=== PATIENT | female | born 1995 | race American Indian/Alaskan Native ===

== ENCOUNTER 2016-07-31 22:28 | Outpatient (CLI) | payer MEDICAID ==
[2016-07-31] MEDS ORDERED: LACTATED RINGERS 500 ML IV ONE (23:01)
[2016-07-31] MEDS ORDERED: LACTATED RINGERS 1,000 ML ONE (23:03)
[2016-07-31 23:43] VITALS: BP 115/58
[2016-08-01] MEDS ORDERED: ZOFRAN IV ONE (00:09)
== END 2016-08-01 01:06 | disposition home or self-care (01) ==
LOC: TRG 22:28
PROVIDERS: ATTEND Obstetrics & Gynecology
DX: O47.02 False labor before 37 completed weeks of gestation, second trimester (principal); Z3A.23 23 weeks gestation of pregnancy
CPT/HCPCS: 96360; 96374; J2405; J7120

== ENCOUNTER 2016-11-04 16:58 | Outpatient (CLI) | payer MEDICAID ==
[2016-11-04] MEDS ORDERED: LACTATED RINGERS 500 ML IV ONE (17:13)
[2016-11-04 18:50] LABS: Hemoglobin 10.4 gm/dl (10.1-14.3); Mean Corpuscular HGB Conc 34 % (30-34); Mean Corpuscular Hemoglobin 27 pg (28-32); Mean Corpuscular Volume 79 fl (79-97); Platelet Count 210 K/mm3 (140-440); Red Blood Count 3.92 M/mm3 (3.65-5.03); Red Cell Distribution Width 14.7 % (13.2-15.2); White Blood Count 8.1 K/mm3 (4.5-11.0)
[2016-11-04] MEDS ORDERED: ZOFRAN IV ONE (18:54)
[2016-11-04] MEDS ORDERED: LACTATED RINGERS 1,000 ML IV SCH (19:00)
[2016-11-04 19:04] VITALS: BP 108/53
[2016-11-04 19:19] LABS: Bilirubin,Urine NEG (Negative); Blood,Urine NEG (Negative); Ketones,Urine NEG (Negative); Leukocyte Esterase,Urine TR (Negative); Mucus,Urine FEW /HPF; Nitrite,Urine NEG (Negative); Protein,Urine <15 mg/dL mg/dL (Negative); Urobilinogen,Urine < 2.0 mg/dL (<2.0)
== END 2016-11-04 20:24 | disposition home or self-care (01) ==
LOC: TRG 16:58
PROVIDERS: ATTEND Obstetrics & Gynecology
DX: O47.1 False labor at or after 37 completed weeks of gestation (principal); Z3A.37 37 weeks gestation of pregnancy
CPT/HCPCS: 36415; 81001; 85027; 96360; 96361; J2405; J7120; 59025

== ENCOUNTER 2017-09-24 08:40 | Emergency (ER) | payer MEDICAID ==
--- NOTE | 2017-09-24 09:56 | Emergency Department Report ---
ED Back Pain/Injury HPI - General Chief Complaint: Back Pain/Injury Stated Complaint: BACK PAIN Time Seen by Provider: 09/24/17 09:18 Source: patient Limitations: No Limitations - History of Present Illness Initial Comments: This is a 21-year-old female presents with low back pain for 1 year it has increased past 3 days. Patient reports back pain started last year after receiving an epidural in October. She has been seen in [facility] when no improvement of symptoms. Patient reports pain is mid line lower spine area. Reports pain is worse with deep breaths to lower back and lower pelvic area. Reports pain and 9 out of 10 on pain scale. Last menstrual period was 09/11/2017, G2P to a 0. Admits to frequency and urgency. Denies dysuria, nausea or vomiting, diarrhea, chest pain, shortness of breath, and fever. MD Complaint: back pain (midline lower back pain) -: days(s) (3 days) Similar Symptoms Previously: Yes (every since received epidural last year) Place: home Radiation: none Severity: moderate Severity scale (0 -10): 7 Quality: aching Consistency: constant Improves With: immobilization, supine Worsens With: movement, sitting upright, deep breaths/cough Context: unknown Associated Symptoms: denies other symptoms Treatments Prior to Arrival: NSAIDS - Related Data Previous Rx's Medication Instructions Recorded Last Taken Type Naproxen [Naprosyn TAB] 500 mg PO BID PRN #15 tablet 09/24/17 Unknown Rx Sulfamethoxazole/Trimethoprim 1 each PO BID 3 Days #6 tablet 09/24/17 Unknown Rx [Bactrim DS TAB] traMADol [Ultram 50 MG tab] 50 mg PO Q6HR PRN #15 tablet 09/24/17 Unknown Rx Allergies Allergy/AdvReac Type Severity Reaction Status Date / Time No Known Allergies Allergy Verified 07/31/16 23:01 ED Review of Systems ROS: Stated complaint: BACK PAIN Other details as noted in HPI Constitutional: denies: chills, fever Respiratory: denies: cough, shortness of breath, wheezing Cardiovascular: denies: chest pain, palpitations Gastrointestinal: denies: abdominal pain, nausea, vomiting, diarrhea Genitourinary: denies: urgency, dysuria, discharge Musculoskeletal: back pain (midline low back pain). denies: joint swelling, arthralgia ED Back Pain Physical Exam - Exam General: Vital signs noted. No distress. Alert and acting appropriately. Back/Abdomen: Yes Sacroiliac Tenderness (midline, no swelling, no erythema), No Abdominal Tenderness, No Perithoracic Tenderness, No Perilumbar Tenderness, No Flank Tenderness, No Straight Leg Raise Pain Neuro: Yes Normal Sensation, Yes Normal DTR's, Yes Normal Gait, No Motor Weakness ED Course Vital Signs 09/24/17 08:50 Temperature 98.5 F Pulse Rate 70 Respiratory 15 Rate Blood Pressure 118/61 [Left] O2 Sat by Pulse 98 Oximetry ED Medical Decision Making - Radiology Data Radiology results: report reviewed CT scan of lumbar spine: History: Low back pain. Findings: Normal height of vertebral bodies and intervertebral discs. Normal articular surfaces. No fracture. There is uniform disc bulge noted at L4-5 and L5-S1 with minimal narrowing of neural foramina bilaterally. The facet joints appears unremarkable. No spinal stenosis. Impression: Mild disc bulge at L4-5 and L5-S1. - Medical Decision Making This is a 21 y.o. female presents with midline low back pain 3 days. Patient was examined by me. Vitals are stable. Patient is in no acute distress. Obtain urinalysis and CT of L-spine. The UA has elevated WBCs and blood. CT scan read by radiologist, impression Mild disc bulge at L4-5 and L5-S1. Start Bactrim DS, naproxen, and tramadol. Patient informed of results. Plan discussed with patient to discharge home and treat outpatient. Follow-up with orthopedic surgery. She agrees with ER plan. Patient discharged home in stable condition. Follow up with PCP in 2-3 days. Critical care attestation.: If time is entered above; I have spent that time in minutes in the direct care of this critically ill patient, excluding procedure time. ED Disposition Clinical Impression: Bulging disc Low back pain Qualifiers: Chronicity: acute Back pain laterality: midline Sciatica presence: without sciatica Qualified Code(s): M54.5 - Low back pain UTI (urinary tract infection) Qualifiers: Urinary tract infection type: acute cystitis Hematuria presence: with hematuria Qualified Code(s): N30.01 - Acute cystitis with hematuria Disposition: TO HOME OR SELFCARE Is pt being admited?: No Does the pt Need Aspirin: No Condition: Stable Instructions: Arthralgia (ED), Acute Low Back Pain (ED), Urinary Tract Infection in Women (ED) Additional Instructions: Rest Use ice or heat on affected area for 20 minutes and off for 2 hours. Take pain medication as needed for pain. Don't drive or operate heavy machinery while taking muscle relaxers because they may cause drowsiness. Follow up with Primary Care Provider in 2-3 days. Follow up with orthopedic surgery for bulging disks pain. Prescriptions: Naproxen [Naprosyn TAB] 500 mg PO BID PRN #15 tablet PRN Reason: Pain Sulfamethoxazole/Trimethoprim [Bactrim DS TAB] 1 each PO BID 3 Days #6 tablet traMADol [Ultram 50 MG tab] 50 mg PO Q6HR PRN #15 tablet PRN Reason: Pain Referrals: [facility] [Outside] - 3-5 Days [facility] [Outside] - 3-5 Days NENO MACK MD [Staff Physician] - 3-5 Days [facility] [Provider Group] - 3-5 Days Time of Disposition: 13:01 Print Language: CZECH
[2017-09-24] MEDS ORDERED: ULTRAM PO ONE (10:07)
[2017-09-24 10:48] LABS: HCG Qualitative,Urine Negative (Negative)
[2017-09-24 10:50] LABS: Bacteria,Urine 2+ /HPF (Negative); Bilirubin,Urine NEG (Negative); Blood,Urine LG (Negative); Color,Urine Yellow (Yellow); Mucus,Urine 1+ /HPF; Urobilinogen,Urine < 2.0 mg/dL (<2.0)
[2017-09-24 10:51] LABS: RBC,Urine > 182.0 /HPF (0.0-6.0); WBC,Urine > 182.0 /HPF (0.0-6.0)
--- NOTE | 2017-09-24 11:15 | Cat Scan Report ---
CT scan of lumbar spine: History: Low back pain. Findings: Normal height of vertebral bodies and intervertebral discs. Normal articular surfaces. No fracture. There is uniform disc bulge noted at L4-5 and L5-S1 with minimal narrowing of neural foramina bilaterally. The facet joints appears unremarkable. No spinal stenosis. Impression: Mild disc bulge at L4-5 and L5-S1.
[2017-09-24 13:19] VITALS: BP 100/58
== END 2017-09-24 13:18 | disposition home or self-care (01) ==
LOC: ED 08:40
DX: M51.86 Other intervertebral disc disorders, lumbar region (principal); N30.01 Acute cystitis with hematuria; M54.5 Low back pain
CPT/HCPCS: 72131; 81001; 81025; 87591